=== PATIENT | male | born 1940 ===

== ENCOUNTER 2021-04-27 11:56 | Outpatient (CLI) | payer MEDICARE, OTHER ==
--- NOTE | 2021-04-27 13:25 | XRAY Report ---
PROCEDURE: Chest 2 View X-Ray INDICATIONS: BRONCHITIS TECHNIQUE: 2 view(s) of the chest. COMPARISON: None. FINDINGS: Surgical changes and devices: None. Lungs and pleura: No pleural effusions or pneumothorax. Lungs appear clear. Prominent lung volumes. Mediastinum: Mediastinal contours are normal. Heart size is within normal limits. Bones and chest wall: No suspicious bony abnormalities. Soft tissues appear unremarkable. IMPRESSION: No acute cardiopulmonary abnormality identified. Reviewed by: Rishabh Kwan MD on 04/27/2021 1:[address] [facility] Approved by: Rishabh Kwan MD on 04/27/2021 1:[address] [facility] Station ID: [id number]
== END 2021-04-27 23:59 | disposition home or self-care (01) ==
LOC: DI.N 11:56
PROVIDERS: ATTEND Physician Assistant Medical
DX: J40 Bronchitis, not specified as acute or chronic (principal); Z20.822 Contact with and (suspected) exposure to COVID-19
CPT/HCPCS: 71046; U0004